=== PATIENT | male | born 1980 | race Caucasian/White ===

== ENCOUNTER 2023-02-24 12:45 | Outpatient (CLI) | payer OTHER | END 2023-02-24 23:59 | disposition critical access hospital (66) | LOC: EMS 12:45 | DX: M54.50 Low back pain, unspecified (principal); X50.9XXA Other and unspecified overexertion or strenuous movements or postures, initial encounter; Y93.89 Activity, other specified; Y92.832 Beach as the place of occurrence of the external cause | CPT/HCPCS: A0425; A0429 ==

== ENCOUNTER 2023-02-24 13:21 | Emergency (ER) | payer OTHER ==
[2023-02-24] MEDS ORDERED: HYDROmorphone 1 MG/ML CARPUJECT IVP STA ×2 (13:40→14:55)
[2023-02-24] MEDS ORDERED: KETOROLAC 15 MG/ML VIAL IVP STA (13:40)
--- NOTE | 2023-02-24 13:41 | ED Physician Documentation ---
PD HPI BACK PAIN - Stated complaint Stated Complaint: LOW BACK PX - History obtained from History obtained from: Patient - Additional information Additional information: 43-year-old gentleman with history of intermittent back problems in the past and one episode of sciatica around age 28. He was pulling a boat up onto the trailer today, had to pull it more than normal because the tide was out and was twisting and pulling and his back gave out on him. Pain is mild at rest but severe in the left low back with any motion or position changes. No weakness, numbness, tingling, saddle anesthesia, fevers. No incontinence. PD PAST MEDICAL HISTORY - Present Medications Home Medications: Ambulatory Orders Medication Instructions Recorded Confirmed Cyclobenzaprine [Flexeril] 10 mg PO TID PRN #20 tablet 02/24/23 Ibuprofen [Motrin] 800 mg PO Q8H PRN #30 tablet 02/24/23 Oxycodone HCl/Acetaminophen 1 - 2 each PO Q6H PRN #14 tablet 02/24/23 [Percocet 5-325 mg Tablet] - Allergies Allergies/Adverse Reactions: Allergies Allergy/AdvReac Type Severity Reaction Status Date / Time No Known Drug Allergies Allergy Verified 02/24/23 13:49 PD ED PE NORMAL - Vitals Vital signs reviewed: Yes - General General: Alert and oriented X 3, No acute distress - Back Back: Other (Palpable tender spasm in the left low back, no midline spinal tenderness) - Extremities Extremities: Other (The patient has equal and normal Achilles and patellar reflexes bilaterally. Normal sensation in all areas of the legs. Patient denies saddle anesthesia. Normal strength in flexion-extension at the ankles, knees, and flexion of the hips.) - Neuro Neuro: Alert and oriented X 3, Normal speech Results - Vitals Vitals: Vital Signs - 24 hr 02/24/23 02/24/23 13:37 15:36 Temperature 98.1 C H 36.9 C Heart Rate 66 80 Respiratory 16 16 Rate Blood Pressure 131/84 H 121/77 O2 Saturation 100 100 Oxygen O2 Source Room air PD Medical Decision Making - ED course ED course: 43-year-old gentleman presents with back spasm. Initially medicated with 15 mg of IV ketorolac and 1 mg of IV hydromorphone with modest relief and the hydromorphone was repeated with half milligram of Ativan after which she was feeling much better and only had mild pain with position changes and walking. This patient has seemingly uncomplicated musculoskeletal back pain. The patient has no "red flags." Specifically denies IV drug use, fevers, incontinence, saddle anesthesia. Spinal epidural abscess was considered, given that the patient has no fever, is not diabetic, has no spinal tenderness, does not use IV drugs, and has no bilateral neurologic symptoms, the diagnosis of spinal epidural abscess is considered exceedingly unlikely. Departure - Departure Disposition: 01 Home, Self Care Clinical Impression: Back spasm Condition: Good Record reviewed to determine appropriate education?: Yes Instructions: ED Spasm Back No Trauma Prescriptions: Cyclobenzaprine [Flexeril] 10 mg PO TID PRN #20 tablet PRN Reason: Spasms Ibuprofen [Motrin] 800 mg PO Q8H PRN #30 tablet PRN Reason: PAIN &/OR FEVER Oxycodone HCl/Acetaminophen [Percocet 5-325 mg Tablet] 1 - 2 each PO Q6H PRN #14 tablet PRN Reason: pain Comments: I sent your prescription electronically to the [facility] pharmacy at the corner of [address] in [place]. Suspect you will continue to have some level of pain for the next few days but then it should peter out. You can use heat and gentle stretching. Return for new or worsening symptoms. As discussed reasonable to find a primary care physician to follow-up with for routine care and follow-up of this issue. A list of local primary care physicians is included with your discharge packet. I am prescribing a short course of narcotic pain medication for you. These are potentially dangerous and addictive medications that should be used carefully. These medications may constipate you. Take an [id number]-[id number] stool softener (docusate) twice daily with plenty of water while taking these medications. If you go 24 hours without a bowel movement, take [id number] miralax, per package instructions. Do not drink or drive while taking these medications. If you received narcotic or sedating medications while in the emergency department, do not drive for 24 hours. Store this medication in a safe, secure place and out of reach of children. It is a violation of federal law to give or sell this medication to another person or to use in a manner other than prescribed. The ED will not refill narcotic prescriptions, including prescriptions lost or stolen. To dispose of unwanted medications: 1. [facility] a [facility] box for medication in pill form only (no liquids) 8:00 am to 4:30 p.m. Friday-Friday in the lobby of the [facility], [address] Empty pills into ziplock bag before disposal. Call [phone] for information. 2.[employer] is a free service available to all [facility] residents. Go to [email or web address] Note that many narcotic pain relievers also contain Tylenol/acetaminophen. Please ensure that your total dose of acetaminophen from all sources does not exceed 3 g (3000 mg) per day. Forms: PCP List, Activity restrictions
[2023-02-24] MEDS ORDERED: LORazepam 2 MG/ML VIAL IVP STA (14:56)
[2023-02-24 15:44] VITALS: BP 121/77
== END 2023-02-24 16:16 | disposition home or self-care (01) ==
LOC: ED 13:21
DX: M62.830 Muscle spasm of back (principal)
CPT/HCPCS: 96374; 96376; 99283; J1170; J2060

== ENCOUNTER 2023-02-27 07:00 | Outpatient (CLI) | payer OTHER ==
--- NOTE | 2023-02-28 00:29 | XRAY Report ---
PROCEDURE: Lumbar Spine 2 View INDICATIONS: LOW BACK STRAIN TECHNIQUE: 2 views of the lumbar spine were acquired. COMPARISON: None. FINDINGS: Bones: 5 [id number] vertebrae are present. There is normal bony alignment. No vertebral body compression fractures. No suspicious bony lesions. Mild degenerative disc disease at L4-L5 and L5-S1 . Soft tissues: Overlying bowel gas pattern is normal. No suspicious soft tissue calcifications. IMPRESSION: Mild degenerative disc disease. Reviewed by: Adelina Barnard MD on 02/28/2023 12:28 AM PDT Approved by: Adelina Barnard MD on 02/28/2023 12:28 AM PDT Station ID: [id number]
== END 2023-02-27 23:59 | disposition home or self-care (01) ==
LOC: DI.S 07:00
PROVIDERS: ATTEND Emergency Medicine
DX: S39.012A Strain of muscle, fascia and tendon of lower back, initial encounter (principal); M51.36 Other intervertebral disc degeneration, lumbar region; M51.37 Other intervertebral disc degeneration, lumbosacral region